=== PATIENT | male | born 1975 | race Caucasian/White ===

== ENCOUNTER 2024-07-14 11:43 | Emergency (ER) | payer BC, SELFPAY ==
[2024-07-14 12:00] VITALS: BP 125/75
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
[2024-07-14 13:13] VITALS: BP 129/71
== END 2024-07-14 13:14 | disposition home or self-care (01) ==
LOC: EMR 11:43
PROVIDERS: EMERGENCY PHYSICIAN Emergency Medicine
DX: S20.211A Contusion of right front wall of thorax, initial encounter (principal); W22.8XXA Striking against or struck by other objects, initial encounter; Y93.55 Activity, bike riding
CPT/HCPCS: 99283; 71101

== ENCOUNTER 2025-05-06 10:39 | Emergency (ER) | payer BC, SELFPAY ==
[2025-05-06 10:51] VITALS: BP 128/79
[2025-05-06 11:18] LABS: Hematocrit 43.4 % (39.0-52.0); Hemoglobin 14.8 g/dL (13.0-18.0); Mean Corp Hgb Conc. 34.1 g/dL (33.0-37.0); Mean Corpuscular Volume 80.8 fL (80.0-94.0); Nucleated Red Blood Cells % 0 % (-); Platelet Count 231 10^3/uL (130-400); Red Cell Dist. Width 13.0 % (11.5-14.5)
[2025-05-06 11:35] LABS: ALT (SGPT) 21 U/L (0-50); AST (SGOT) 22 U/L (17-59); Albumin 4.5 g/dl (3.5-5.0); Alkaline Phosphatase 74 U/L (38-126); Blood Urea Nitrogen 10 mg/dl (9-20); Calcium 9.5 mg/dl (8.4-10.2); Carbon Dioxide 28 mmol/L (22-30); Chloride 104 mmol/L (98-107); Glucose 97 mg/dl (70-99); Lipase 72 U/L (23-300); Potassium 4.0 mmol/L (3.5-5.1); Sodium 138 mmol/L (135-145); Total Protein 7.5 g/dl (6.3-8.2); eGFR > 60.00
--- NOTE | 2025-05-06 11:51 | ED.GENMED ---
History of Present Illness
General
Chief Complaint: Abdominal Pain
Source: patient
Exam Limitations: none
Time Seen by Provider: 05/06/25 11:40
Nursing documentation reviewed up to this point in time: agreed with
History of Present Illness
History of Present Illness:
49-year-old male with no reported chronic issues presents to the emergency department with his for evaluation of abdominal pain. Patient reports onset of symptoms 2 days ago and has been constant since that time. He reports vague diffuse
abdominal pain initially which seems of localized to the right lower quadrant. He says that he had associated nausea and subjective fever yesterday which seem to have resolved today but pain persistent which prompted visit to urgent care�at urgent
care he was directed to go to the ER for assessment. He has not had any vomiting. He denies any constipation�has had some mild loose stools which he says is not unusual for him. He denies any dysuria, hematuria, change in urinary frequency. He
denies any other acute complaints. He denies any prior abdominal surgeries.
Review of Systems
Review of Systems
All Other Systems: ROS reviewed and negative except as documented in HPI and ROS
Constitutional: Reports fever; Denies fatigue or chills
Respiratory: Denies cough or trouble breathing
Cardiac: Denies chest pain
ABD/GI: Reports abdominal pain, nausea and diarrhea; Denies vomiting or constipated
: Denies dysuria, frequency, flank pain or bleeding
Musculoskeletal: Denies neck pain or back pain
Neurological: Denies headache
Phy Exam
Physical Exam
Physical Exam:
General: Awake, alert; no acute distress
Head: Normocephalic, atraumatic
Eyes: Conjunctiva normal, sclera anicteric
Throat: Airway intact, handling secretions
Neck: Trachea midline, supple without meningismus
Lungs: Clear to auscultation bilaterally, no wheezing, rales, rhonchi
Heart: Regular rate and rhythm, no murmurs, gallops, or rubs
Abd: Soft, non distended, mildly tender in the right lower quadrant, no peritoneal signs or masses appreciated
Back: No CVA tenderness
Neuro: No gross deficits
Skin: no rash in area of concern
Extremities: Warm and well-perfused
Scores
Heart Failure Risk
Heart Failure Risk Score: Not Applicable
Heart Score for Chest Pain Patients
STEMI patient?: Not applicable
Withdrawal Assessment of Alcohol
Withdrawal Assessment Completed?: Not applicable
Course
Orders/Labs/Results
Orders:
Orders
05/06/25 11:02
Complete Blood Count/With Diff Urgent
Comprehensive Metabolic Panel Urgent
Lipase Urgent
05/06/25 11:42
CT Abd/pelvis W Iv Cont Urgent
Comment:
Reason For Exam: right sided abd pain
05/06/25 12:21
Urinalysis Reflex To Culture Urgent
Date Specimen was Collected: 05/06/25
Time Specimen was Collected: 11:54
Urine Microscopic Reflex Cult Urgent
05/06/25 13:02
Ciprofloxacin HCl [Cipro] 500 mg PO ONCE ONE
MetroNIDAZOLE [Flagyl] 500 mg PO NOW STA
Abnormal Lab Results
05/06/25 05/06/25
11:02 12:21
WBC 11.7 H 10^3/uL
(4.8-10.8)
Abs Immat Gran (auto) 0.1 H 10^3/uL
(0-0.05)
Absolute Neuts (auto) 8.0 H 10^3/uL
(1.4-6.5)
Absolute Monos (auto) 1.2 H 10^3/uL
(0.1-0.6)
Lymphocytes % 18.6 L %
(20.5-51.1)
Monocytes % 10.2 H %
(1.7-9.3)
Urine Ketones 1+ A
(Negative)
Urine Albumin (Reflex) 1+ A
(Neg - Trace)
05/06/25 11:02
05/06/25 11:02
Vital Signs
Initial and Last Documented VS:
Initial Vital Signs
Temp Pulse Resp BP Pulse Ox
36.7 C 81 18 128/79 95
05/06/25 10:51 05/06/25 10:51 05/06/25 10:51 05/06/25 10:51 05/06/25 10:51
Last Documented Vital Signs
Temp Pulse Resp BP Pulse Ox
36.6 C 77 16 118/68 99
05/06/25 12:44 05/06/25 12:44 05/06/25 12:44 05/06/25 12:44 05/06/25 12:44
MDM/Problems Addressed
Differential Diagnosis Includes:
Appendicitis, diverticulitis, nephrolithiasis, UTI, cholelithiasis/cholecystitis
MDM/Problems Addressed:
49-year-old male presents to the ER for evaluation of abdominal pain as described above. Vitals and exam as above. Had lab work sent in triage including a CBC which shows mild leukocytosis, CMP no clinically significant abnormalities, lipase
normal. Check urinalysis, CT abdomen pelvis. Will monitor closely reassess after the above.
CT shows signs consistent with uncomplicated sigmoid diverticulitis, no appendicitis or other acute abnormalities noted. Vitals have been stable. Patient has no signs of sepsis, no complications, reasonable candidate for oral antibiotic therapy.
Patient feels very comfortable with this plan. Spoke about diagnosis, follow-up plan including GI follow-up as an outpatient. We spoke about return precautions and all questions answered.
*Radiology
Radiology exam reviewed: radiology read reviewed
*Pulse Oximetry
SaO2: 95
Oxygen Mode of Delivery: Room air
Patient hypoxic: no (95%)
*Critical Care Note
Total Time (30-74mins, 75-104mins- exclusive of procedures): Not Applicable
Data Reviewed
Source: patient and spouse
ED Attending Note
-
Portions of this chart may have been created with voice recognition software.� Occasional wrong word or��sound alike� substitutions may have occurred due to the inherent limitations of voice recognition software.
Discharge Plan
Departure
Patient Disposition: Home (Routine Discharge)
Date of Disposition: 05/06/25
Time of Disposition: 13:02
Patient with high blood pressure during this ER visit?: No
Discharge Problem:
Acute diverticulitis
Instructions: Diverticulitis (DC), Low-fiber diet
Prescriptions:
New
ciprofloxacin HCl 500 mg tablet
500 mg PO BID Qty: 14 0RF
metronidazole 500 mg tablet
500 mg PO TID Qty: 21 0RF
Referrals:
Juan Palmer, [Active, Gastroenterology] - Call in 1-3 days for appt
Activity Restrictions/Additional Instructions:
Thank you for visiting the Emergency Department at [facility].
1. Please schedule a follow up appointment as directed. Call first thing tomorrow morning to make an appointment.
2. If indicated, please take your medications as instructed and indicated on discharge paperwork.
3. If any of your symptoms do not improve, or persist, or become more severe within 6-12 hours, please return to the emergency department for further care.
4. Please return to the emergency department if you develop a headache, neck pain/stiffness, fever greater than 100.4F, chest pain, shortness of breath, persistent nausea, vomiting, slurred speech, difficulty walking, numbness/tingling, weakness,
signs of infection or any other symptoms that are worrisome to you.
Please call [phone] if you have any questions.
Interventions
Interventions:
*Risk Screen - Suicide Last Done: 05/06/25 10:51
*General Assessment Last Done: 05/06/25 10:51
*Neglect/Abuse Screening Last Done: 05/06/25 11:53
*ED- Fall Risk Assessment Last Done: 05/06/25 11:53
*Nursing Disposition Last Done: 05/06/25 13:07
IU-Jausgt-Dequhqksaa Assessment Last Done: 05/06/25 11:53
Discharge Date and Time
Print Language: CAPE VERDEAN
[2025-05-06 11:53] VITALS: BMI 27.6
[2025-05-06 12:35] LABS: Urine Character Clear (Clear)
[2025-05-06 12:44] VITALS: BP 118/68
[2025-05-06 12:47] LABS: Urine Red Blood Cell 0-2 /HPF (0-2); Urine Squamous Cell 0-2 /LPF (Few); Urine White Cell 0-2 /HPF (0-5)
[2025-05-06] MEDS: FLAGYL 500 MG PO (13:10)
[2025-05-06] MEDS: CIPRO 500 MG PO (13:11)
== END 2025-05-06 13:16 | disposition home or self-care (01) ==
LOC: EMR 10:39
PROVIDERS: Emergency Medicine; EMERGENCY PHYSICIAN Emergency Medicine
DX: K57.32 Diverticulitis of large intestine without perforation or abscess without bleeding (principal)
CPT/HCPCS: 99284; 74177; 80053; 81003; 81015; 83690; 85025; Q9967

== ENCOUNTER 2025-09-07 02:57 | Observation (INO) | payer BC, SELFPAY ==
[2025-09-06 21:32] VITALS: BP 115/74
[2025-09-06 21:53] LABS: Hematocrit 44.2 % (39.0-52.0); Hemoglobin 15.8 g/dL (13.0-18.0); Mean Corp Hgb Conc. 35.7 g/dL (33.0-37.0); Mean Corpuscular Volume 77.4 fL (80.0-94.0); Nucleated Red Blood Cells % 0 % (-); Platelet Count 245 10^3/uL (130-400); Red Cell Dist. Width 12.9 % (11.5-14.5)
[2025-09-06 22:13] LABS: ALT (SGPT) 38 U/L (0-50); AST (SGOT) 36 U/L (17-59); Albumin 4.9 g/dl (3.5-5.0); Alkaline Phosphatase 80 U/L (38-126); Blood Urea Nitrogen 10 mg/dl (9-20); Calcium 10.0 mg/dl (8.4-10.2); Carbon Dioxide 24 mmol/L (22-30); Chloride 103 mmol/L (98-107); Glucose 138 mg/dl (70-99); Lipase 152 U/L (23-300); Potassium 3.6 mmol/L (3.5-5.1); Sodium 136 mmol/L (135-145); Total Protein 8.3 g/dl (6.3-8.2); eGFR > 60.00
[2025-09-06] MEDS: DILAUDID 0.5 MG IV (23:01)
--- NOTE | 2025-09-06 23:30 | ED.GENMED ---
History of Present Illness
<Carly Lyles PA-C - Last Filed: 09/07/25 11:54>
General
Chief Complaint: Abdominal Pain
Source: patient
Exam Limitations: none
Time Seen by Provider: 09/06/25 22:55
Nursing documentation reviewed up to this point in time: agreed with
History of Present Illness
History of Present Illness:
Patient is a 50-year-old male with history of diverticulitis who presents to the emergency department for evaluation of upper abdominal pain. Patient states symptoms started in between 6/7 PM after eating dinner. He states that he had Thanksgiving
leftovers. He describes a constant pain in his upper abdomen along with a sensation of feeling very 'full'. Starting around 8 PM, he had a few episodes of vomiting. He denies any radiation of pain around to his back. He denies any chest pain or
shortness of breath. However, he does state that pain is exacerbated when he takes a deep breath.
Patient denies any diarrhea or constipation. No urinary symptoms. He denies any known sick contacts. He does report infrequent social alcohol use.
No history of abdominal surgeries.
Review of Systems
<Carly Lyles PA-C - Last Filed: 09/07/25 11:54>
Review of Systems
Allergies reviewed?: Yes
All Other Systems: ROS reviewed and negative except as documented in HPI and ROS
Phy Exam
<Carly Lyles PA-C - Last Filed: 09/07/25 11:54>
Physical Exam
Physical Exam:
Vitals: Patient's vital signs are stable. Afebrile.
General: Patient is very uncomfortable appearing, moaning on initial evaluation.
Skin: Warm and dry, no rashes or lesions
Head: Normocephalic, atraumatic
Eyes: Sclera nonicteric. EOMs intact.
Throat: Protecting airway
Neck: Normal ROM, no cervical spine tenderness, no meningismus
Cardiac: Regular rate and rhythm, no murmurs.
Pulm: Normal respiratory effort. Taking shallow breaths. Lungs clear
.
Abdomen: Abdomen soft. Moderate tenderness in epigastric region and right upper quadrant. No rebound or guarding. Negative Garcia sign. No focal tenderness McBurney's point.
Extremities: No evidence of cyanosis or edema
Neuro: AAOx3. CN II-XII intact. No focal neurologic deficits.
Psychiatric: Normal affect.
Course
<Carly Lyles PA-C - Last Filed: 09/07/25 11:54>
Orders/Labs/Results
Orders:
Orders
09/06/25 21:43
Complete Blood Count/With Diff Urgent
Comprehensive Metabolic Panel Urgent
Lipase Urgent
09/06/25 22:55
HYDROmorphone [Dilaudid] 0.5 mg IV NOW STA
09/06/25 23:18
0.9% Sodium Chloride 1000 ml [Nss] 1,000 ml IV BOLUS
Ondansetron Injectable [Zofran] 4 mg IV NOW STA
09/07/25 00:00
HYDROmorphone [Dilaudid] 0.5 mg .ROUTE .STK-MED ONE
09/07/25 00:02
HYDROmorphone [Dilaudid] 0.5 mg IV NOW STA
09/07/25 02:10
LevoFLOXacin 750 MG/150 ML [Levaquin] 750 mg in 150 ml IV NOW
MetroNIDAZOLE 500 MG/100 ML [Flagyl 500 mg] 100 ml IV NOW
09/07/25 02:12
HYDROmorphone [Dilaudid] 0.5 mg IV NOW STA
09/07/25 02:35
Admit/Transfer Patient As Directed
Co-Sign Provider:
Level of Care: Observation services
Assign to:: Medical/Surgical
Physician / Group: Dr. Diogo Roman/General Surgery
Diagnosis: Acute Cholecystitis
PRN Pain Medication Management As Directed
May give lesser potent ordered pain med per pt: Yes
preference::
Protocol:: Medication orders for pain may be administered in a
manner that supports deferring to patient preference
when the pt is:
- Requesting an ordered lesser potent pain medication.
Least to most potent pain medications are defined
as: acetaminophen < NSAID < tramadol < opioids
(morphine, oxycodone, hydromorphone).
- Requesting a lesser dose of the same medication IF
ORDERED.
- Requesting a less intrusive route of administration
if both routes are prescribed by the provider (PO <
IV).
09/07/25 02:38
Code Status As Directed
Resuscitation Status: Full Code
09/07/25 03:39
0.9% Sodium Chloride 1000 ml [Nss] 1,000 ml IV 120 mls/hr
Benzocaine/Menthol [Anesthetic Lozenge] 1 lozenge PO Q4HPRN PRN
HYDROmorphone [Dilaudid] 0.5 mg IV Q2HPRN PRN
HYDROmorphone [Dilaudid] 1 mg IV Q2HPRN PRN
Ondansetron Injectable [Zofran] 4 mg IV Q6HPRN PRN
09/07/25 03:39
Activity As Directed
Activity Level: Out of Bed-Early Mobility
Anti-embolism (CONCEPCION) Hose As Directed
Type: Thigh high
Bladder Scan As Directed
Follow Bladder Retention/Intermittent Cath Algorithm?: Yes
PRN if no void in __ hours: 6
Frequency: Per Retention Algorithm
If Bladder Scan Result >: 400
then:: Straight cath
Intake/ Output As Directed
Frequency: Per unit guidelines
Pneumatic Compression Sleeves As Directed
Type: Thigh high
Straight Cath As Directed
Frequency: Per Retention Algorithm
Additional Instructions: as per intermittent urinary catheter algorithm
Vital Signs As Directed
Frequency: Per unit guidelines
O2 Therapy [RESP] Routine
Titrate/Wean O2 to maintain O2 sat greater than (%): 92
Rx Incentive Spirometry [RESP] Routine
Frequency: q1h while awake
# of times per hour: 10
DX Deep Vein Thrombosis Video Routine
09/07/25 06:00
Electrocardiogram (*1) IN AM
Reason for Study: PreOp
NPO
Allow oral meds: No
Allow clear liquids: No
09/07/25 06:39
Basic Metabolic Panel IN AM
Complete Blood Count/With Diff IN AM
09/07/25 16:00
MetroNIDAZOLE 500 MG/100 ML [Flagyl 500 mg] 100 ml IV Q12H
09/07/25 18:00
Enoxaparin Sodium [Lovenox] 40 mg SC QPM
09/07/25 23:18
US Abdomen Complete/Upper Urgent
Reason For Exam: Upper abdominal pain
09/08/25 04:00
LevoFLOXacin 750 MG/150 ML [Levaquin] 750 mg in 150 ml IV Q24H
Abnormal Lab Results
09/06/25
21:43
WBC 14.2 H 10^3/uL
(4.8-10.8)
MCV 77.4 L fL
(80.0-94.0)
Abs Immat Gran (auto) 0.1 H 10^3/uL
(0-0.05)
Absolute Neuts (auto) 9.3 H 10^3/uL
(1.4-6.5)
Absolute Lymphs (auto) 3.5 H 10^3/uL
(1.2-3.4)
Absolute Monos (auto) 1.0 H 10^3/uL
(0.1-0.6)
Immature Gran % 0.7 H %
(0-0.5)
Glucose 138 H mg/dl
(70-99)
Total Protein 8.3 H g/dl
(6.3-8.2)
09/06/25 21:43
09/06/25 21:43
Vital Signs
Initial and Last Documented VS:
Initial Vital Signs
Temp Pulse Resp BP Pulse Ox
97.9 F 87 16 115/74 99
09/06/25 21:32 09/06/25 21:32 09/06/25 21:32 09/06/25 21:32 09/06/25 21:32
Last Documented Vital Signs
Temp Pulse Resp BP Pulse Ox
98.0 F 87 16 130/71 98
09/07/25 07:30 09/07/25 07:30 09/07/25 07:30 09/07/25 07:30 09/07/25 07:30
<Quirino Holland, DO - Last Filed: 09/07/25 13:33>
Orders/Labs/Results
Orders:
Orders
09/06/25 21:43
Complete Blood Count/With Diff Urgent
Comprehensive Metabolic Panel Urgent
Lipase Urgent
09/06/25 22:55
HYDROmorphone [Dilaudid] 0.5 mg IV NOW STA
09/06/25 23:18
0.9% Sodium Chloride 1000 ml [Nss] 1,000 ml IV BOLUS
Ondansetron Injectable [Zofran] 4 mg IV NOW STA
09/07/25 00:00
HYDROmorphone [Dilaudid] 0.5 mg .ROUTE .STK-MED ONE
09/07/25 00:02
HYDROmorphone [Dilaudid] 0.5 mg IV NOW STA
09/07/25 02:10
LevoFLOXacin 750 MG/150 ML [Levaquin] 750 mg in 150 ml IV NOW
MetroNIDAZOLE 500 MG/100 ML [Flagyl 500 mg] 100 ml IV NOW
09/07/25 02:12
HYDROmorphone [Dilaudid] 0.5 mg IV NOW STA
09/07/25 02:35
Admit/Transfer Patient As Directed
Co-Sign Provider:
Level of Care: Observation services
Assign to:: Medical/Surgical
Physician / Group: Dr. Diogo Roman/General Surgery
Diagnosis: Acute Cholecystitis
PRN Pain Medication Management As Directed
May give lesser potent ordered pain med per pt: Yes
preference::
Protocol:: Medication orders for pain may be administered in a
manner that supports deferring to patient preference
when the pt is:
- Requesting an ordered lesser potent pain medication.
Least to most potent pain medications are defined
as: acetaminophen < NSAID < tramadol < opioids
(morphine, oxycodone, hydromorphone).
- Requesting a lesser dose of the same medication IF
ORDERED.
- Requesting a less intrusive route of administration
if both routes are prescribed by the provider (PO <
IV).
09/07/25 02:38
Code Status As Directed
Resuscitation Status: Full Code
09/07/25 03:39
0.9% Sodium Chloride 1000 ml [Nss] 1,000 ml IV 120 mls/hr
Benzocaine/Menthol [Anesthetic Lozenge] 1 lozenge PO Q4HPRN PRN
HYDROmorphone [Dilaudid] 0.5 mg IV Q2HPRN PRN
HYDROmorphone [Dilaudid] 1 mg IV Q2HPRN PRN
Ondansetron Injectable [Zofran] 4 mg IV Q6HPRN PRN
09/07/25 03:39
Activity As Directed
Activity Level: Out of Bed-Early Mobility
Anti-embolism (CONCEPCION) Hose As Directed
Type: Thigh high
Bladder Scan As Directed
Follow Bladder Retention/Intermittent Cath Algorithm?: Yes
PRN if no void in __ hours: 6
Frequency: Per Retention Algorithm
If Bladder Scan Result >: 400
then:: Straight cath
Intake/ Output As Directed
Frequency: Per unit guidelines
Pneumatic Compression Sleeves As Directed
Type: Thigh high
Straight Cath As Directed
Frequency: Per Retention Algorithm
Additional Instructions: as per intermittent urinary catheter algorithm
Vital Signs As Directed
Frequency: Per unit guidelines
O2 Therapy [RESP] Routine
Titrate/Wean O2 to maintain O2 sat greater than (%): 92
Rx Incentive Spirometry [RESP] Routine
Frequency: q1h while awake
# of times per hour: 10
DX Deep Vein Thrombosis Video Routine
09/07/25 06:00
Electrocardiogram (*1) IN AM
Reason for Study: PreOp
NPO
Allow oral meds: No
Allow clear liquids: No
09/07/25 06:39
Basic Metabolic Panel IN AM
Complete Blood Count/With Diff IN AM
09/07/25 16:00
MetroNIDAZOLE 500 MG/100 ML [Flagyl 500 mg] 100 ml IV Q12H
09/07/25 18:00
Enoxaparin Sodium [Lovenox] 40 mg SC QPM
09/07/25 23:18
US Abdomen Complete/Upper Urgent
Reason For Exam: Upper abdominal pain
09/08/25 04:00
LevoFLOXacin 750 MG/150 ML [Levaquin] 750 mg in 150 ml IV Q24H
Abnormal Lab Results
09/06/25
21:43
WBC 14.2 H 10^3/uL
(4.8-10.8)
MCV 77.4 L fL
(80.0-94.0)
Abs Immat Gran (auto) 0.1 H 10^3/uL
(0-0.05)
Absolute Neuts (auto) 9.3 H 10^3/uL
(1.4-6.5)
Absolute Lymphs (auto) 3.5 H 10^3/uL
(1.2-3.4)
Absolute Monos (auto) 1.0 H 10^3/uL
(0.1-0.6)
Immature Gran % 0.7 H %
(0-0.5)
Glucose 138 H mg/dl
(70-99)
Total Protein 8.3 H g/dl
(6.3-8.2)
09/06/25 21:43
09/06/25 21:43
Vital Signs
Initial and Last Documented VS:
Initial Vital Signs
Temp Pulse Resp BP Pulse Ox
97.9 F 87 16 115/74 99
09/06/25 21:32 09/06/25 21:32 09/06/25 21:32 09/06/25 21:32 09/06/25 21:32
Last Documented Vital Signs
Temp Pulse Resp BP Pulse Ox
98.0 F 87 16 130/71 98
09/07/25 07:30 09/07/25 07:30 09/07/25 07:30 09/07/25 07:30 09/07/25 07:30
<Carly Lyles PA-C - Last Filed: 09/07/25 11:54>
MDM/Problems Addressed
Differential Diagnosis Includes:
Not limited to: Biliary colic, acute cholecystitis, choledocholithiasis, pancreatitis, GERD, gastroenteritis, bowel obstruction, etc.
MDM/Problems Addressed:
50-year-old male with acute onset upper abdominal pain associated with vomiting. Symptoms started after eating dinner this evening. No radiation of pain into back. No chest pain or shortness of breath.
Patient is afebrile on arrival with stable vital signs. On exam, he is in significant distress due to pain. He has reproducible tenderness in epigastric region without rebound or guarding. No areas of focal tenderness in lower abdomen.
Cardio/pulmonary assessment unremarkable.
Differential as above. Suspect intra-abdominal pathology given reproducible tenderness. Less likely cardiac.
Will check basic labs and obtain abdominal ultrasound. Will treat pain, give IV fluids and reassess.
Update: labs reveal leukocytosisc of 14.2. Chemistry unremarkable. Patients appears more comfortable after analgesia. Ultrasound pending.
Update: Ultrasound reveals cholelithiasis and gall sludge. Gallbladder wall mildly� moderately thickened up to 5 mm. Presenting symptoms and leukocytosis, in conjunction with US findings concerning for acute cholecystitis. Case was discussed with
general surgeon, Dr. Roman who accepts patient to his service.
IV Levaquin and metronidazole given in ED.
Patient admitted to general surgery service in stable condition with plan for likely CCY tomorrow.
Chronic conditions affecting care:
N/A
Acute Exacerbation and/or Progression of Chronic Illness:
N/A
<Carly Lyles PA-C - Last Filed: 09/07/25 11:54>
*Radiology
Radiology exam reviewed: radiology read reviewed
*Pulse Oximetry
SaO2: 99
Oxygen Mode of Delivery: Room air
Patient hypoxic: no
*EKG
Interpreted by ED Provider?: NA
*Landmen Interpretation
Rate: Landmen- N/A
*Critical Care Note
Total Time (30-74mins, 75-104mins- exclusive of procedures): Not Applicable
<Carly Lyles PA-C - Last Filed: 09/07/25 11:54>
Patient Management
Discussion with other providers: Chemical Maker (Case discussed with general surgery)
ED Attending Note
<Carly Lyles PA-C - Last Filed: 09/07/25 11:54>
-
Portions of this chart may have been created with voice recognition software.� Occasional wrong word or��sound alike� substitutions may have occurred due to the inherent limitations of voice recognition software.
<Quirino Holland, DO - Last Filed: 09/07/25 13:33>
ED Attending Note
Patient seen and examined by attending physician: Yes
I performed the substantive portion of visit, reviewed & personally made and approve the management plan that is documented in note by myself or NIMISHA.: Yes
I performed a history and physical exam of patient and discussed management with resident, I reviewed resident's note and agree with documented findings and plan of care.: Yes
ED Attending Note:
50-year-old male presents to the ER for evaluation of severe upper abdominal pain which started today. Patient writhing on the stretcher, preferring to be on all fours on arrival. Vital signs reviewed, patient is awake, alert, uncomfortable,
mucous membranes moist, GCS is 15. I reviewed all test results with physician first assistant. Patient was given Dilaudid after time of initial assessment given severity of pain. Ultrasound is concerning for acute cholecystitis. Reviewed all test
results with physician first assistant. She was able to speak to the on-call surgeon who accept patient for admission for further care.
Discharge Plan
Departure
Patient Disposition: Admit
Date of Disposition: 09/07/25
Time of Disposition: 02:11
Admit to doctor: Dr. Roman
Presentation/result/management discussed w/ accepting MD/DO: General Surgery
Discharge Problem:
Acute cholecystitis
Interventions
Interventions:
*Risk Screen - Suicide Last Done: 09/06/25 21:32
*General Assessment Last Done: 09/06/25 21:32
*Neglect/Abuse Screening Last Done: 09/07/25 03:41
*ED- Fall Risk Assessment Last Done: 09/06/25 21:32
*ED COVID-19 Vaccine History Last Done: 09/06/25 21:32
*ED Influenza Vaccine History Last Done: 09/06/25 21:32
*Nursing Disposition Last Done: 09/07/25 03:41
JG-Jbkuoo-Jydmcqrndc Assessment Last Done: 09/06/25 23:08
Discharge Date and Time
Discharge Date/Time: 09/07/25 03:42
[2025-09-06] MEDS: NSS 1000 IV (23:35)
[2025-09-06] MEDS: ZOFRAN 4 MG IV (23:35)
[2025-09-07] VITALS (13 sets, daily range): BP systolic 108–134; BP diastolic 49–96; BMI 29.5
[2025-09-07] MEDS: DILAUDID 0.5 MG IV ×4 (00:02→15:11)
[2025-09-07] MEDS: LEVAQUIN 150 IV (02:46)
[2025-09-07] MEDS: FLAGYL 500 MG 100 IV ×2 (02:47→15:14)
--- NOTE | 2025-09-07 02:51 | HPS.HSE ---
Family Physician
-
Family Physician: MEGHANA Flores
Chief Complaint
-
Abdominal pain
History of Present Illness
Patient is a 50 year old male with a past medical history of diverticulitis, presents to the emergency department with new onset right upper quadrant abdominal pain. Patient states symptoms started between 6 and 7 pm after eating dinner. He
describes pain as severe, constant pain in his upper abdomen along with a sensation of feeling bloated. Patient admits to an episode of vomiting. He denies any chest pain, shortness of breath, diarrhea or constipation. Denies urinary symptoms. No
history of abdominal surgeries.
In the emergency department labs: WBC 14.2, Vital signs stable, afebrile
- Abdominal Ultrasound (preliminary read by [facility]) shows:
Study is mildly limited by patient body habitus.
There are small gallstones and sludge in the gallbladder. Gallbladder wall is mild to moderately thickened up to 5 mm. No pericholecystic fluid is seen. Reportedly negative sonographic Garcia sign. Findings are equivocal for the possibility of
acute cholecystitis.
Common bile duct is within normal limits, measuring 3 mm.
The spleen is upper limits of normal in size measuring 12.5 cm in length.
The liver and kidneys are unremarkable.
Pancreas could not be visualized due to overlying bowel gas.
Patient received: IV fluids NSS 1L bolus x 1, Dilaudid 0.5 mg IV x 3, Zofran 4 mg IV x 1, IV antibiotics: Levaquin 750 mg IV x 1 and Metronidazole 500 mg IV x 1, in the emergency department
ED provider Carly Lyles PA-C reviewed with General Surgery, Dr. Roman, who is accepting the patient to his service.
Plan: NPO at midnight, IV antibiotics, IV fluids, pain management and antiemetics.
Medical History
Past Medical History
Past Medical History: Reports Other (Diverticulitis)
Past Surgical History: Reports Urological (Hydrocele repair, 2005)
Social History
Tobacco: Non-smoker
Alcohol: Occasional
Drug: None
Personal:
Living: With Family
Employment: Employed
Family History
Family History: Not pertinent
Allergies / Home Medications
Allergies reflects when Allergies were last updated in [employer].
Home Medications with original date entered in [employer]
Allergy/Medication List:
Patient Allergies
Allergy/AdvReac Type Severity Reaction Status Date / Time
erythromycin base Allergy Unknown Verified 09/06/25 21:31
Penicillins Allergy Unknown Verified 09/06/25 21:31
Home Medications
�Medication �Instructions �Recorded
No Meds [No Current Medications] 09/07/25
Review of Systems
-
History Source: Patient
A 12 point ROS was completed and negative except as noted: Yes
Constitutional: Reports See HPI
EENT: Reports No Symptoms
Respiratory: Reports No Symptoms
Cardiac: Reports No Symptoms
Abdomen/GI: Reports Abdominal Pain (right upper quadrant), Nausea and Vomiting
: Reports No Symptoms
Musculoskeletal: Reports No Symptoms
Skin: Reports No Symptoms
Neurological: Reports No Symptoms
Psych: Reports No Symptoms
Physical Exam
Vital Signs
Vital Signs
Temp Pulse Resp BP Pulse Ox
97.9 F 84 23 115/74 99
09/06/25 21:32 09/06/25 23:03 09/06/25 23:03 09/06/25 21:32 09/06/25 23:35
Physical Exam
General: Well Nourished and Appears in Distress (holding stomach)
HEENT: NormoCephalic, Moist mucous membranes and PERRLA
Respiratory: Clear and Non Labored Respirations
Cardiac: S1/S2 and Regular Rhythm
GI: Normal Bowel Sounds and Tender (right upper quadrant )
Musculoskeletal: No Edema
Skin: Warm and Dry
Neuro: Awake, Alert and Oriented
Psych: Calm and Intact Judgment/Insight
Laboratory Results
-
09/06/25 21:43
09/06/25 21:43
Laboratory Results
Total Bilirubin 0.7 mg/dl (0.2-1.3) 09/06/25 21:43
AST 36 U/L (17-59) 09/06/25 21:43
ALT 38 U/L (0-50) 09/06/25 21:43
Alkaline Phosphatase 80 U/L (38-126) 09/06/25 21:43
Lipase 152 U/L (23-300) 09/06/25 21:43
Data Reviewed
-
Ultrasound: Report Reviewed by me
Lab Data: Labs Reviewed by me
Impression/Plan
-
IMPRESSION:
Patient is a 50 year old male with a past medical history of diverticulitis, presents to the emergency department with new onset right upper quadrant abdominal pain.
PLAN:
Acute cholecystitis
- Admit to General Surgery, Med Surg under the service of Dr. Roman
- Abdominal Ultrasound (preliminary read by [facility]) shows:
Study is mildly limited by patient body habitus.
There are small gallstones and sludge in the gallbladder. Gallbladder wall is mild to moderately thickened up to 5 mm. No pericholecystic fluid seen.
Reportedly negative sonographic Garcia sign. Findings are equivocal for the possibility of acute cholecystitis.
Common bile duct is within normal limits, measuring 3 mm.
The spleen is upper limits of normal in size measuring 12.5 cm in length.
The liver and kidneys are unremarkable.
Pancreas could not be visualized due to overlying bowel gas.
- NPO until seen by surgery, IV fluids NSS @ 120 mls/hr
- IV antibiotics: Continue Levofloxacin 750 mg IV Q24H, Metronidazole 500 mg IV Q12H
- Pain medication: Dilaudid
- Antiemetics: Zofran
DVT prophylaxis: SCD's
Code status: Full Code
[2025-09-07] MEDS: NSS 1000 IV ×3 (04:19→18:40)
--- NOTE | 2025-09-07 05:38 | TRANSFER ---
Pt transferred up to the floor from the ED. Pt is ambulatory in the room. IV in place. Pt alert and oriented. Pt oriented to the room. Call mills and belongings with in reach. bed in the lowest position.
[2025-09-07 07:05] LABS: Hematocrit 42.8 % (39.0-52.0); Hemoglobin 14.7 g/dL (13.0-18.0); Mean Corp Hgb Conc. 34.3 g/dL (33.0-37.0); Mean Corpuscular Volume 79.3 fL (80.0-94.0); Nucleated Red Blood Cells % 0 % (-); Platelet Count 200 10^3/uL (130-400); Red Cell Dist. Width 13.1 % (11.5-14.5)
[2025-09-07 07:43] LABS: Blood Urea Nitrogen 9 mg/dl (9-20); Calcium 9.0 mg/dl (8.4-10.2); Carbon Dioxide 27 mmol/L (22-30); Chloride 102 mmol/L (98-107); Estimated Creatinine Clearance 99 ml/min; Glucose 112 mg/dl (70-99); Potassium 4.6 mmol/L (3.5-5.1); Sodium 134 mmol/L (135-145); eGFR > 60.00
--- NOTE | 2025-09-07 11:34 | W.SUR.PREOP ---
Pre-Operative Surgical Note
-
I have examined this patient prior to the performance of the scheduled procedure.
The patient's condition is unchanged from the time of the current History and
Physical and the patient is able to undergo the scheduled procedure.
[2025-09-07] MEDS: MYCOSTATIN ORAL SUSPENSION 5 ML PO ×2 (13:02→19:57)
--- NOTE | 2025-09-07 16:15 | CM ---
CM attempted bedside meeting
Off unit in OR/lap corina
CM to follow up post op
--- NOTE | 2025-09-07 17:32 | W.IMMPOSTOP ---
Surgical Immed Post Op Note
-
Primary Surgeon: Brennan Alston MD
Assisting Surgeon: None
Pre-op Diagnosis: Acute cholecystitis
Post-op Diagnosis: Gangrenous cholecystitis
Procedure Performed: Laparoscopic cholecystectomy with cholangiogram
Anesthesia Type: General
Specimen / Cultures: Gallbladder and contents
Estimated Blood Loss: 11 cc
Complications: None
Operative Findings: Acutely inflamed, gangrenous cholecystitis without perforation. No definitive anterior cystic artery was identified, a posterior cystic artery was identified and clipped. A cholangiogram was performed which initially did not
show filling of the duodenum but was otherwise normal, no definitive filling defect was identified. This was likely secondary to a tight sphincter of Oddi. The cholangiocatheter was advanced through the ampulla into the duodenum, forcing the
sphincter open and allowing contrast to spill into the duodenum. A repeat cholangiogram now showed free flow of contrast into the duodenum, and again no filling defect. The duct was ligated with a clip followed by 0 PDS Endoloop. Floseal was
applied and the hilum.
POST OP PLAN:
Imaging: None
Labs: Routine AM
Diet: Advance to Regular as tolerated
Analgesia: Tylenol 650mg q6 Kermit, Dilaudid 0.5mg q2h PRN
Neuro/vascular checks: Per unit protocol
AC/AP: Hold Therapeutic AC, Ok for DVT PPx
Activity: Ad Anita
Wound/Incisions/Drains: Routine
Ab. Will do 4 days of antibiotics
Dispo: RNF, anticipate discharge home tomorrow
--- NOTE | 2025-09-07 17:37 | OR.RPT ---
Operative Report
Operative Report
Patient Name: Rafael Farmer
: 1975
Date of Operation: 09/07/2025
Preoperative Diagnosis: Acute cholecystitis
Postoperative Diagnosis: Gangrenous cholecystitis
Procedure(s):
Laparoscopic Cholecystectomy with Cholangiogram
Surgeon(s):
Dr. Alston
Direct Chill Caster(s):
Tamika Lindo NP
Anesthesia: General
Estimated Blood Loss: 11 cc
Urine Output: None
Drains/Lines/Implants: None
Specimens:
1. Gallbladder and contents
HPI/Surgical Indications:
This is a 50-year-old male who presents with 2 days of right upper quadrant abdominal pain in the setting of 2 weeks of similar symptoms. Exam, labs and imaging are consistent with acute cholecystitis. Risks/Benefits/Alternatives were discussed at
length, and the patient consented to proceed with surgery.
Operative Findings: Acutely inflamed, gangrenous cholecystitis without perforation. No definitive anterior cystic artery was identified, a posterior cystic artery was identified and clipped. A cholangiogram was performed which initially did not
show filling of the duodenum but was otherwise normal, no definitive filling defect was identified. This was likely secondary to a tight sphincter of Oddi. The cholangiocatheter was advanced through the ampulla into the duodenum, forcing the
sphincter open and allowing contrast to spill into the duodenum. A repeat cholangiogram now showed free flow of contrast into the duodenum, and again no filling defect. The duct was ligated with a clip followed by 0 PDS Endoloop. Floseal was
applied and the hilum.
Procedure Description:
The patient was brought to the Operating Room and placed in the supine position with one arm tucked. Following uneventful induction of general endotracheal anesthesia, an orogastric tube was placed. The abdomen was prepped and draped in the usual
sterile fashion. A timeout was performed confirming the procedure, consent, and that IV antibiotics were infused and sequential compression devices were confirmed to be on. The abdomen was entered using a left subcostal Veress technique which
required a single pass followed by a 5 mm right upper quadrant Optiview trocar. Pneumoperitoneum to 15 mmHg pressure was obtained without difficulty and we confirmed that no injury had occurred during our entry. The patient was positioned in
reverse Trendelenberg and rotated with the right side up slightly. Three (3) 5mm trocars were then placed along the right subcostal margin. The gallbladder was visibly gangrenous with patchy areas of green gangrene. It was emptied using a
decompressing needle through the fundus of the gallbladder with evacuation of hydrops before A locking grasping forceps was placed on the fundus of the gallbladder where it was then retracted cephalad and to the right. Using appropriate grasping
instruments, the peritoneum overlying the triangle of Calot was incised and extended superiorly on both the anterior and posterior gallbladder mitchell. The lower third of the gallbladder was dissected off the cystic plate. The cystic duct was
quickly identified, but no true cystic artery was isolated. There was a posterior cystic artery that was clipped. The cystic duct was ligated high on the gallbladder. A ductotomy was made and a cholangiocatheter on an Reis clamp was inserted into
the cystic duct. A C-arm was draped and brought into the field. An intra-operative cholangiogram was performed and was noted to have:
No filling defects in the biliary tree
No significant biliary dilation
Normal biliary anatomy
Initially, there was no flow into the duodenum, likely secondary to a tight sphincter of Oddi. After advancing the cholangiocatheter into the common bile duct and through the sphincter into the duodenum contrast flowed more readily. This was
confirmed on a completion cholangiogram.
The catheter was then removed and the cystic duct was controlled with a clip followed by 0 PDS Endoloop. After ensuring both the artery and duct were divided, the gallbladder was freed from the liver using electrocautery. There was some minimal
spillage of bile from our ductotomy, but no spillage of stones. The gallbladder bed was inspected and excellent hemostasis was obtained. The gallbladder was extracted through the 12 mm trocar site using an endocatch bag without dilating the port
site. The abdomen was again irrigated and excellent hemostasis was assured. All remaining trocars were then removed and the pneumoperitoneum was evacuated. The 12 mm trocar site was closed using 0 PDS suture. All trocar sites were closed at the
skin level using 4-0 Monocryl followed by Dermabond. Overall, the patient tolerated the procedure well and was taken to the Recovery Room postoperatively in stable condition.
I was the attending physician and performed the procedure with assistance of the SALESPERSON TERRAZZO TILES above. They were required due to the complexity of the procedure. During the procedure they assisted with port placement, gallbladder retraction, holding camera and
skin closure. I was present for all portions of the case.
Brennan Alston MD
--- NOTE | 2025-09-07 19:00 | PTCARENOTE ---
Pt arrived to [facility] from PACU @ 1900. Pt AAOx3. VSS. IVF initiated per order. Pt dtv @ 0100. Pt oriented to room, call mills within reach, bed locked and in lowest position. Plan of care reviewed with pt & spouse at bedside. All questions answered.
Care ongoing.
[2025-09-07] MEDS: LOVENOX 40 MG SC (19:57)
[2025-09-07] MEDS: TYLENOL 650 MG PO (21:42)
[2025-09-07] MEDS: MYCOSTATIN ORAL SUSPENSION PO (21:43)
[2025-09-08] MEDS: NSS 1000 IV (03:00)
[2025-09-08] MEDS: FLAGYL 500 MG 100 IV (03:02)
[2025-09-08 03:17] VITALS: BP 116/73
[2025-09-08] MEDS: LEVAQUIN 150 IV (04:15)
[2025-09-08 06:11] LABS: Hematocrit 40.8 % (39.0-52.0); Hemoglobin 13.8 g/dL (13.0-18.0); Mean Corp Hgb Conc. 33.8 g/dL (33.0-37.0); Mean Corpuscular Volume 81.3 fL (80.0-94.0); Nucleated Red Blood Cells % 0 % (-); Platelet Count 193 10^3/uL (130-400); Red Cell Dist. Width 13.2 % (11.5-14.5)
[2025-09-08 06:42] LABS: ALT (SGPT) 99 U/L (0-50); AST (SGOT) 81 U/L (17-59); Albumin 3.7 g/dl (3.5-5.0); Alkaline Phosphatase 67 U/L (38-126); Blood Urea Nitrogen 10 mg/dl (9-20); Calcium 8.5 mg/dl (8.4-10.2); Carbon Dioxide 28 mmol/L (22-30); Chloride 103 mmol/L (98-107); Estimated Creatinine Clearance 99 ml/min; Glucose 132 mg/dl (70-99); Potassium 4.0 mmol/L (3.5-5.1); Sodium 136 mmol/L (135-145); Total Protein 6.5 g/dl (6.3-8.2); eGFR > 60.00
[2025-09-08 07:44] VITALS: BP 103/66
--- NOTE | 2025-09-08 08:42 | W.PN.GS2 ---
Today's Communication / Plan
-
Dispo planning
Assessment / Plan
-
This is a 50-year-old male who presented with abdominal pain found to have acute cholecystitis POD 1 status post laparoscopic cholecystectomy for gangrenous cholecystitis. Doing well, expected postoperative course.
Will DC home today with a 4-day course of antibiotics.
Time Spent
Total Time Spent with Patient (in minutes): 20
Subjective Data
-
Date of Service: September 08, 2025
Interval Events:
No acute events overnight. Slept well. Pain Controlled. Denies Nausea/Vomiting, +bowel function. Tolerating diet.
Objective Data
-
Intake and Output
09/07/25 09/08/25 09/09/25
06:59 06:59 06:59
Intake Total 3210 / 3210
Balance 3210 / 3210
Intake:
Oral fluids 480 / 480
IV fluids (Total) 2380 / 2380
Normosal 100 / 100
IV piggybacks 350 / 350
Other:
Number of approximated MODERATE 3
amounts of urine
Number of approximated LARGE 1
amounts of urine
Vital Signs
Temp Pulse Resp BP Pulse Ox
98.4 F 83 14 103/66 96
09/08/25 07:44 09/08/25 07:44 09/08/25 07:44 09/08/25 07:44 09/08/25 07:44
Lab Results
09/08/25 05:32
09/08/25 05:32
Calcium 8.5 mg/dl (8.4-10.2) 09/08/25 05:32
Total Bilirubin 0.9 mg/dl (0.2-1.3) 09/08/25 05:32
AST 81 U/L (17-59) H 09/08/25 05:32
ALT 99 U/L (0-50) H 09/08/25 05:32
Alkaline Phosphatase 67 U/L (38-126) 09/08/25 05:32
Total Protein 6.5 g/dl (6.3-8.2) D 09/08/25 05:32
Albumin 3.7 g/dl (3.5-5.0) 09/08/25 05:32
Physical Exam
-
GENERAL/NEURO: Awake, Alert, no distress
CHEST: Unlabored breathing on RA
ABDOMEN: Soft, appropriately tender, nondistended, incisions clean dry and intact.
Patient has a damon catheter: No
Patient has a central line: No
[2025-09-08] MEDS: MYCOSTATIN ORAL SUSPENSION 5 ML PO (08:52)
[2025-09-08] MEDS: TYLENOL 650 MG PO (09:01)
--- NOTE | 2025-09-08 09:16 | CM ---
CM met with pt and spouse bedside
They reside in a [facility] with 2STE, full flight to 2nd floor
Pt is independent with his ADLs, no ADs
Pt denies use of DMEs and financial insecurities
PCP- Giovanni Smith
Rx- [facility]
Pt is POD#2 lap corina
Discharge order noted
Spouse will assist pt throughout recovery
Capability to sleep on 1st floor if needed
No dc need snoted
OBS forms reviewed verbally- copy provided
Discharge Disposition- home, no needs, spouse transport
== END 2025-09-08 10:25 | disposition home or self-care (01) ==
LOC: 2 SOUTH 02:57
PROVIDERS: Emergency Medicine; Nurse Practitioner Family; Surgery; ADMITTING PHYSICIAN Surgery; EMERGENCY PHYSICIAN Emergency Medicine
DX: K80.00 Calculus of gallbladder with acute cholecystitis without obstruction (principal); K82.A1 Gangrene of gallbladder in cholecystitis; K57.30 Diverticulosis of large intestine without perforation or abscess without bleeding
CPT/HCPCS: 47563; 76000; 76700; 80048; 80053; 83690; 85025; 88304; 93005; 96374; 99285; G0378